=== PATIENT | female | born 1980 | race Caucasian/White ===

== ENCOUNTER 2023-12-23 16:37 | Inpatient (IN) | payer BC ==
[~2023-12-23] VITALS: Ht 165.1 cm; Wt 77.1 kg
[2023-12-23] MEDS ORDERED: ONDANSETRON HCL/PF 4 MG/2 ML VIAL ONE ×2 (17:04→21:22)
[2023-12-23] MEDS ORDERED: MORPHINE SULFATE INJ 4 MG/ML DISP.SYRIN ONE ×2 (17:04→21:23)
[2023-12-23] MEDS: ONDANSETRON HCL/PF 4 MG/2 ML VIAL IVP ONE (17:08)
[2023-12-23] MEDS: MORPHINE SULFATE INJ 2 MG/ML DISP.SYRIN IV ONE ×2 (17:08→21:24)
[2023-12-23] MEDS: IV NS 0.9% 1,000 ML BAG IV ONE ×2 (17:08→21:24)
[2023-12-23 17:15] LABS: BASOPHILS # (AUTO) 0.1 K/uL (0.0-0.2); BASOPHILS % (AUTO) 1.1 % (0.0-2.0); EOSINOPHILS % (AUTO) 0.1 % (0.0-6.0); HEMATOCRIT 37 % (33-45); HEMOGLOBIN 12.6 g/dL (11.5-14.8); LYMPHOCYTES % (AUTO) 7.5 % (20.0-44.0); MEAN CORPUSCULAR HEMOGLOBIN 31 PG (26.0-33.0); MEAN CORPUSCULAR HGB CONC 34 g/dl (31.0-36.0); MEAN CORPUSCULAR VOLUME 92 fL (82-100); MONOCYTES # (AUTO) 0.5 K/uL (0.1-1.30); MONOCYTES % (AUTO) 3.6 % (2.0-12.0); NEUTROPHILS # (AUTO) 12.1 K/uL (1.8-8.9); NEUTROPHILS % (AUTO) 87.7 % (43.0-81.0); PLATELET COUNT (AUTO) 308 K/uL (150-450); RED BLOOD CELL COUNT(AUTO) 4.04 MIL/uL (4.0-5.2); RED CELL DISTRIBUTION WIDTH 13.9 % (11.5-15.0); WHITE BLOOD COUNT (AUTO) 13.8 K/uL (4.3-11.0)
[2023-12-23 17:25] LABS: CALCIUM, SERUM 9.2 mg/dL (8.5-10.1); CREATININE 0.8 mg/dL (0.6-1.3); POTASSIUM 3.8 mmol/L (3.5-5.1)
[2023-12-23 17:29] VITALS: O2SAT 100
[2023-12-23 17:31] LABS: ALBUMIN 3.8 g/dL (3.4-5.0); BILIRUBIN,DIRECT 0.1 mg/dL (0.0-0.2); BILIRUBIN,TOTAL 0.4 mg/dL (0.2-1.0)
[2023-12-23] MEDS ORDERED: IOHEXOL-300 100 ML VIAL IV ONE (17:53)
[2023-12-23] MEDS ORDERED: IV NS 0.9% 250 ML IV ONE (17:53)
[2023-12-23 18:30] LABS: PREGNANCY TEST URINE QUAL NEGATIVE (NEGATIVE)
[2023-12-23 18:32] LABS: APPEARANCE,URINE CLEAR (CLEAR); BILIRUBIN,URINE NEGATIVE (NEGATIVE); BLOOD, URINE NEGATIVE Ery/uL (NEGATIVE); COLOR,URINE YELLOW (YELLOW); KETONES,URINE NEGATIVE (NEGATIVE); LEUKOCYTE ESTERASE ,URINE NEGATIVE (NEGATIVE); NITRITE, URINE NEGATIVE (NEGATIVE); PROTEIN,URINE NEGATIVE (NEGATIVE); UGLUCOSE NEGATIVE (NEGATIVE)
[2023-12-23 18:54] LABS: ADD URINE CULTURE NO; BACTERIA,URINE 1+ /HPF (None Seen); RBC,URINE 0-2 /HPF (0-2); SQUAMOUS EPITHELIAL CELL,UR 0-2 /HPF (None Seen); WBC,URINE NONE SEEN /HPF (0-3)
[2023-12-23] MEDS ORDERED: PIPERACI/TAZO 3.375GM/D5W 50ML PB IV ONE (20:05)
[2023-12-23] MEDS: PIPERACILLIN /TAZOBACTAM 3.375 G in IV D5W 50 ML IV ONE (20:11)
[2023-12-23] MEDS ORDERED: ACETAMINOPHEN 325 MG TABLET PO PRN (21:00)
[2023-12-23] MEDS ORDERED: ONDANSETRON HCL/PF 4 MG/2 ML VIAL IVP PRN (21:00)
[2023-12-23] MEDS ORDERED: MAG HYDROX/AL HYDROX/SIMETH 30 ML UDC PO PRN (21:00)
[2023-12-23] MEDS: ONDANSETRON HCL/PF 4 MG/2 ML VIAL IV ONE (21:24)
[2023-12-23] MEDS ORDERED: FENTANYL PF 250MCG/5ML AMPUL ONE (22:00)
[2023-12-23] MEDS ORDERED: ROCURONIUM BROMIDE 50 MG/5 ML ONE (22:00)
[2023-12-23] MEDS ORDERED: EPHEDRINE SULFATE IV 50MG VIAL IJ PRN ×2 (22:00→22:15)
[2023-12-23] MEDS ORDERED: MIDAZOLAM HCL 2 MG/2ML VIAL ONE (22:00)
[2023-12-23] MEDS ORDERED: ANESTHESIA TRAY IN PYXIS 1 EA TRAY MC ONE (22:03)
[2023-12-23] MEDS ORDERED: BUPIVACAINE 0.5 % PF 150 MG/30 ML VIAL ONE (22:08)
[2023-12-23] MEDS ORDERED: LIDOCAINE 1%-EPI 1:100,000 20 ML VIAL ONE (22:08)
[2023-12-23] MEDS ORDERED: BACITRACIN OPHTH OINT 3.5 GM TUBE ONE (22:09)
[2023-12-23 23:46] VITALS: BP 103/63; TEMP 98.2
[2023-12-24] MEDS: IV LR 1000 ML 1,000 ML IV SCH (00:23)
[2023-12-24] MEDS: GABAPENTIN 100 MG CAPSULE PO SCH (01:06)
[2023-12-24] MEDS: CELECOXIB 100 MG CAPSULE PO SCH (01:06)
[2023-12-24] MEDS: ACETAMINOPHEN 650 MG/20.3 ML UDC PO SCH (01:15)
[2023-12-24] MEDS ORDERED: ACETAMINOPHEN 650 MG/20.3 ML UDC NG SCH (02:00)
[2023-12-24] MEDS ORDERED: PIPERACILLIN /TAZOBACTAM 3.375 G in IV D5W 50 ML IV SCH ×2 (05:00→12:00)
[2023-12-24] MEDS: PIPERACILLIN /TAZOBACTAM 3.375 G in IV D5W 50 ML IV SCH (05:06)
[2023-12-24] MEDS: PIPERACI/TAZO 3.375GM/D5W 50ML PB IV ONE (05:07)
[2023-12-24] MEDS: MORPHINE SULFATE INJ 4 MG/ML DISP.SYRIN IV PRN (06:34)
[2023-12-24 08:00] VITALS: BP 103/55; TEMP 98.6; O2SAT 96
[2023-12-24] MEDS ORDERED: SODI500S5 PO ×2 (09:14→21:37)
[2023-12-24] MEDS ORDERED: [UNRECOGNIZED DRUG - OTHER] PO (09:14)
[2023-12-24] MEDS ORDERED: VITA400C74 PO (09:14)
[2023-12-24] MEDS ORDERED: MODAFINIL PO (09:14)
[2023-12-24] MEDS ORDERED: MAGN200T5 PO (09:14)
[2023-12-24] MEDS: ZOSYN IVPB 3.375 G in IV D5W 50ml IV SCH (12:07)
[2023-12-24 16:00] VITALS: BP 94/58; TEMP 98.1; O2SAT 99
[2023-12-24 20:00] VITALS: BP 96/54; TEMP 97.7; O2SAT 97
[2023-12-24] MEDS ORDERED: SODIUM OXYBATE PO SCH (23:00)
[2023-12-25] MEDS ORDERED: [UNRECOGNIZED DRUG - OTHER] PO SCH (09:00)
[2023-12-25] MEDS: MODAFINIL 100 MG TABLET PO SCH (10:03)
[2023-12-25] MEDS: MAGNESIUM OXIDE 400 MG TABLET PO SCH (10:03)
[2023-12-25] MEDS: VITAMIN E 400 UNIT CAPSULE PO SCH (10:04)
[2023-12-25] MEDS: IV LR 1000 ML 1,000 ML IV PRN (18:44)
[2023-12-25 20:00] VITALS: BP 103/65; TEMP 98.4; O2SAT 97
[2023-12-25] MEDS ORDERED: SODIUM OXYBATE PO SCH (22:00)
[2023-12-26 06:33] LABS: POTASSIUM 3.7 mmol/L (3.5-5.1)
[2023-12-26 06:35] LABS: BASOPHILS % (AUTO) 0.8 % (0.0-2.0); EOSINOPHILS # (AUTO) 0.1 K/uL (0.0-0.7); EOSINOPHILS % (AUTO) 1.5 % (0.0-6.0); HEMATOCRIT 29 % (33-45); LYMPHOCYTES % (AUTO) 31.3 % (20.0-44.0); MEAN CORPUSCULAR HEMOGLOBIN 32 PG (26.0-33.0); MEAN CORPUSCULAR HGB CONC 35 g/dl (31.0-36.0); MEAN CORPUSCULAR VOLUME 92 fL (82-100); MONOCYTES # (AUTO) 0.6 K/uL (0.1-1.30); MONOCYTES % (AUTO) 9.4 % (2.0-12.0); NEUTROPHILS # (AUTO) 3.7 K/uL (1.8-8.9); PLATELET COUNT (AUTO) 203 K/uL (150-450); RED BLOOD CELL COUNT(AUTO) 3.14 MIL/uL (4.0-5.2); RED CELL DISTRIBUTION WIDTH 13.7 % (11.5-15.0); WHITE BLOOD COUNT (AUTO) 6.5 K/uL (4.3-11.0)
[2023-12-26 07:00] VITALS: BP 107/68; TEMP 98.4; O2SAT 93
[2023-12-26] MEDS ORDERED: AMOX-430 PO (12:43)
[2023-12-26] MEDS ORDERED: GABA100C PO (12:43)
[2023-12-26] MEDS ORDERED: LACT1CAP72 PO (12:45)
== END 2023-12-26 15:51 | disposition home or self-care (01) | DRG 398 ==
LOC: ER 16:41 → MED 22:03
PROVIDERS: ATTEND Internal Medicine
PROC: 0DTJ4ZZ Resection of Appendix, Percutaneous Endoscopic Approach (ICD-10-PCS; principal; 2023-12-23)
DX: K35.80 Unspecified acute appendicitis (principal); E87.1 Hypo-osmolality and hyponatremia; D72.829 Elevated white blood cell count, unspecified; R73.9 Hyperglycemia, unspecified
CPT/HCPCS: 36415; 71045-TC; 80048-TC; 80076-TC; 81001; 84703-TC; 85025-TC; 87081-TC; 87086-TC; A4223; G0378; J0330; J0690; J1100; J2250; J2270; J2405; J2543; J2704; J3010; J3490; J7030; J7050; J7060; J7120; Q9967